=== PATIENT | male | born 1995 | race Caucasian/White ===

== ENCOUNTER 2021-04-02 16:37 | Emergency (ER) | payer MEDICAID ==
[~2021-04-02] VITALS: Ht 175.3 cm; Wt 67.0 kg
[2021-04-02] MEDS ORDERED: IBUP-2029 MT (17:39)
[2021-04-02] MEDS ORDERED: IBUPROFEN 600MG TABLET PO NR (18:00)
[2021-04-02 18:07] VITALS: BP 120/81
== END 2021-04-02 18:08 | disposition home or self-care (01) ==
LOC: ER 16:37
DX: R59.0 Localized enlarged lymph nodes (principal)
CPT/HCPCS: 99282

== ENCOUNTER 2021-12-23 17:32 | Emergency (ER) | payer MEDICAID, OTHER ==
[~2021-12-23] VITALS: Ht 175.3 cm; Wt 68.0 kg
[~2021-12-23 17:32] MED LIST: IBUP-2029 MT
[2021-12-23] MEDS ORDERED: IBUPROFEN 600MG TABLET PO ONE (21:00)
[2021-12-23 21:04] VITALS: BP 127/98
[2021-12-23] MEDS ORDERED: IBUP-2029 MT (21:40)
== END 2021-12-23 22:03 | disposition home or self-care (01) ==
LOC: ER 17:32
DX: S93.491A Sprain of other ligament of right ankle, initial encounter (principal); V29.49XA Motorcycle driver injured in collision with other motor vehicles in traffic accident, initial encounter; Y93.55 Activity, bike riding; Y92.410 Unspecified street and highway as the place of occurrence of the external cause
CPT/HCPCS: 73610; 99283

== ENCOUNTER 2023-02-14 16:48 | Emergency (ER) | payer MEDICAID ==
[~2023-02-14] VITALS: Ht 175.3 cm; Wt 69.1 kg
[2023-02-14 17:06] VITALS: BP 128/81
[2023-02-14] MEDS ORDERED: KETOROLAC 60MG/2ML VIAL IM ONE (20:00)
[2023-02-14] MEDS ORDERED: T3 PO (21:26)
[2023-02-14] MEDS ORDERED: IBUP-2029 MT (21:26)
== END 2023-02-14 21:50 | disposition home or self-care (01) ==
LOC: ER 16:48
DX: S82.002A Unspecified fracture of left patella, initial encounter for closed fracture (principal); W50.1XXA Accidental kick by another person, initial encounter; Y93.89 Activity, other specified; Y92.89 Other specified places as the place of occurrence of the external cause; Y99.8 Other external cause status; J45.909 Unspecified asthma, uncomplicated
CPT/HCPCS: 73562; 73700; 96372; 99285; J1885; L1830